=== PATIENT | male | born 1995 | race Caucasian/White ===

== ENCOUNTER 2018-04-19 13:04 | Emergency (ER) | payer OTHER ==
[~2018-04-19] VITALS: Ht 177.8 cm; Wt 74.1 kg
[2018-04-19 13:20] VITALS: BP 126/66
== END 2018-04-19 15:13 | disposition home or self-care (01) ==
LOC: ED 15:00
DX: S80.02XA Contusion of left knee, initial encounter (principal); V00.131A Fall from skateboard, initial encounter; Y93.51 Activity, roller skating (inline) and skateboarding; Y92.488 Other paved roadways as the place of occurrence of the external cause; Y99.8 Other external cause status
CPT/HCPCS: 99284